=== PATIENT | female | born 1990 | race Hispanic/Latino ===

== ENCOUNTER 2018-09-26 22:09 | Emergency (ER) | payer OTHER ==
[2018-09-26] MEDS ORDERED: IBUPROFEN 200 MG TAB PO ONE (23:04)
[2018-09-26] MEDS ORDERED: IBUPROFEN 400 MG TAB ONE (23:04)
--- NOTE | 2018-09-26 23:42 | EDPHYS ---
Physician Documentation [facility] Name: Shira Power Age: 28 yrs Sex: Female : 1990 Arrival Date: 09/26/2018 Time: 22:09 Bed 24 Private MD: Gopi Arias ED Physician Fransisco Mann HPI: 09/26 23:26 This 28 yrs old Female presents to ER via Wheelchair with complaints of Foot gs Injury. 23:28 This 28 yrs old Female presents to ER via Wheelchair with complaints of Foot gs Injury. 23:28 The patient presents with a deformity, an injury. The complaints affect the left ankle. gs Onset: The symptoms/episode began/occurred acutely, just prior to arrival. Context: The problem was sustained at a sports field or court. Associated signs and symptoms: Pertinent positives: swelling. Modifying factors: the symptoms are aggravated by weight bearing, movement. Severity of symptoms: At their worst the symptoms were moderate, in the emergency department the symptoms are unchanged. The patient has not experienced similar symptoms in the past. 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 - Social history:: Smoking status: Patient/guardian denies using tobacco. - Ebola Screening: : Patient negative for fever greater than or equal to 101.5 degrees Fahrenheit, and additional compatible Ebola Virus Disease symptoms Patient denies exposure to infectious person Patient denies travel to an Ebola-affected area in the 21 days before illness onset. ROS: 23:28 All other systems are negative. gs Exam: 23:28 Neuro: Awake and alert, GCS 15, oriented to person, place, time, and situation. gs Cranial nerves II-XII grossly intact. Motor strength 5/5 in all extremities. Sensory grossly intact. Cerebellar exam normal. Normal gait. 23:28 Constitutional: The patient appears alert, awake. 23:28 Neck: Exam negative for acute changes, crepitus, pain w/ palpation. 23:28 Respiratory: Respirations: no acute changes, is not noted, Breath sounds: are clear throughout. 23:28 Abdomen/GI: Exam negative for acute changes, discomfort. 23:28 Back: Exam negative for acute changes. 23:28 Musculoskeletal/extremity: Pulses: are normal with no appreciated deficits, Sensation intact. Joints: the left ankle displays painful range of motion, swelling, tenderness. Vital Signs: 22:41 BP 135 / 67; Pulse 81; Resp 16 S; Temp 98.1(O); Pulse Ox 100% on R/A; Weight 106.59 kg; ca1 Height 5 ft. 1 in. (154.94 cm); Pain 10/10; 23:55 BP 118 / 70; Pulse 94; Resp 15; Temp 98; Pulse Ox 99% ; rv 22:41 Body Mass Index 44.40 (106.59 kg, 154.94 cm) ca1 MDM: 22:41 Patient medically screened. 23:41 Differential diagnosis: fracture, sprain. Data reviewed: vital signs, nurses notes, radiologic studies. Counseling: I had a detailed discussion with the patient and/or guardian regarding: the historical points, exam findings, and any diagnostic results supporting the discharge/admit diagnosis, the presence of at least one elevated blood pressure reading (>120/80) during this emergency department visit, the need for outpatient follow up. Special discussion: I have referred the patient to see his PCP for further evaluation of high blood pressure. 09/26 22:43 Order name: Ankle Left 3 View XRAY Administered Medications: 22:51 Drug: Ibuprofen 600 mg Route: PO; ca1 Disposition: 09/26/18 23:42 Discharged to Home. Impression: Sprain of other ligament of left ankle. - Condition is Stable. - Discharge Instructions: Ankle Sprain. - Medication Reconciliation Form, Thank You Letter, Antibiotic Education, Prescription Opioid Use form. - Follow up: Private Physician; When: 2 - 3 days; Reason: Re-evaluation by your physician. Signatures: Dispatcher [employer] Fransisco Hernandez MD MD Ruben Landry RN RN rv Erlinda Mullins RN RN ca1 Corrections: (The following items were deleted from the chart) 09/27 00:00 09/26 23:42 09/26/2018 23:42 Discharged to Home. Impression: Sprain of other ligament rv of left ankle. Condition is Stable. Forms are Medication Reconciliation Form, Thank You Letter, Antibiotic Education, Prescription Opioid Use. Follow up: Private Physician; When: 2 - 3 days; Reason: Re-evaluation by your physician. gs
--- NOTE | 2018-09-26 23:42 | ER ---
Nurse's Notes [facility] Name: Shira Power Age: 28 yrs Sex: Female : 1990 Arrival Date: 09/26/2018 Time: 22:09 Bed 24 Private MD: Gopi Arias Diagnosis: Sprain of other ligament of left ankle Presentation: 09/26 22:34 Presenting complaint: Patient states: L foot pain after I stepped my foot straight ca1 through all the foam around 2044 tonight at [employer]. My ankle hurts right now. Transition of care: patient was not received from another setting of care. Onset of symptoms was September 26, 2018. Risk Assessment: Do you want to hurt yourself or someone else? Patient reports no desire to harm self or others. Initial Sepsis Screen: Does the patient meet any 2 criteria? No. Patient's initial sepsis screen is negative. Does the patient have a suspected source of infection? No. Patient's initial sepsis screen is negative. Care prior to arrival: None. 22:34 Method Of Arrival: Wheelchair ca1 22:34 Acuity: BONY 4 ca1 Triage Assessment: 22:41 General: Appears in no apparent distress. comfortable, Behavior is calm, cooperative, ca1 appropriate for age. Pain: Complains of pain in left foot. Musculoskeletal: Circulation, motion, and sensation intact. Capillary refill < 3 seconds, Range of motion: intact in all extremities. Injury Description: swelling on L ankle. 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 - Social history:: Smoking status: Patient/guardian denies using tobacco. - Ebola Screening: : Patient negative for fever greater than or equal to 101.5 degrees Fahrenheit, and additional compatible Ebola Virus Disease symptoms Patient denies exposure to infectious person Patient denies travel to an Ebola-affected area in the 21 days before illness onset. Screenin:45 Abuse screen: Denies threats or abuse. Denies injuries from another. Nutritional ca1 screening: No deficits noted. Tuberculosis screening: No symptoms or risk factors identified. Fall Risk None identified. Assessment: 22:45 General: Appears in no apparent distress. comfortable, Behavior is calm, cooperative, ca1 appropriate for age. Pain: Complains of pain in left foot Pain currently is 10 out of 10 on a pain scale. Pain began 2 hours ago. Neuro: Level of Consciousness is awake, alert, obeys commands, Oriented to person, place, time, situation. Cardiovascular: Heart tones S1 S2 present Capillary refill < 3 seconds Patient's skin is warm and dry. Respiratory: Airway is patent Respiratory effort is even, unlabored, Respiratory pattern is regular, symmetrical, Breath sounds are clear bilaterally. Derm: Skin is intact, is healthy with good turgor, Skin is pink, warm \T\ dry. Musculoskeletal: Circulation, motion, and sensation intact. Capillary refill < 3 seconds, Range of motion: intact in all extremities. Vital Signs: 22:41 BP 135 / 67; Pulse 81; Resp 16 S; Temp 98.1(O); Pulse Ox 100% on R/A; Weight 106.59 kg; ca1 Height 5 ft. 1 in. (154.94 cm); Pain 10/10; 23:55 BP 118 / 70; Pulse 94; Resp 15; Temp 98; Pulse Ox 99% ; rv 22:41 Body Mass Index 44.40 (106.59 kg, 154.94 cm) ca1 ED Course: 22:09 Patient arrived in ED. as 22:12 Gopi Arias MD is Private Physician. as 22:20 Fransisco Mann MD is Attending Physician. gs 22:26 Erlinda Mullins, CHEV[place] is Primary Nurse. ca1 22:39 Triage completed. ca1 22:41 Arm band placed on right wrist. ca1 22:45 Patient has correct armband on for positive identification. Bed in low position. Call ca1 light in reach. Side rails up X 1. Pulse ox on. NIBP on. Warm blanket given. 22:45 No provider procedures requiring assistance completed. Patient did not have IV access ca1 during this emergency room visit. 23:04 Ankle Left 3 View XRAY In Process Unspecified. EDMS Administered Medications: 22:51 Drug: Ibuprofen 600 mg Route: PO; ca1 Outcome: 23:42 Discharge ordered by . gs 23:55 Discharged to home with crutches. rv 23:55 Condition: good 23:55 Discharge instructions given to patient, Instructed on discharge instructions, follow up and referral plans. Demonstrated understanding of instructions, follow-up care. 09/27 00:00 Patient left the ED. rv Signatures: Dispatcher [employer] Christina Navarro Gregory, MD MD Ruben Landry RN RN rv Erlinda Mullins RN RN ca1 Corrections: (The following items were deleted from the chart) 09/26 22:45 22:34 Presenting complaint: Patient states: L foot pain after I stepped my foot down ca1 between cushions around 2044 tonight at [employer]. My ankle hurts right now ca1
--- NOTE | 2018-09-27 12:13 | RAD REPORT ---
EXAM DESCRIPTION: RAD - Ankle Left 3 View -09/26/2018 11:08 pm CLINICAL HISTORY: Left ankle pain status post injury FINDINGS: Soft tissue swelling lateral malleolus. Small chip avulsion fracture lateral malleolus suspected No dislocation. Large calcaneal spurs
== END 2018-09-27 | disposition home or self-care (01) ==
LOC: ER 22:09
DX: S93.402A Sprain of unspecified ligament of left ankle, initial encounter (principal); E11.9 Type 2 diabetes mellitus without complications
CPT/HCPCS: 99283